=== PATIENT | male | born 1975 | race Caucasian/White ===

== ENCOUNTER 2024-02-14 10:09 | Inpatient (IN) | payer OTHER ==
[2024-02-14 11:57] LABS: BASOPHILS ABSOLUTE AUTO 0.07 K/uL (0.00-0.10); BASOPHILS PERCENT AUTO 0.6 % (0.1-1.3); EOSINOPHILS ABSOLUTE AUTO 0.08 K/uL (0.00-0.40); EOSINOPHILS PERCENT AUTO 0.7 % (0.0-5.4); IMMATURE GRAN ABSOLUTE AUTO 0.06 K/uL (0.00-0.23); IMMATURE GRAN PERCENT AUTO 0.5 % (0.0-0.7); LYMPHOCYTES ABSOLUTE AUTO 1.98 K/uL (0.8-3.3); LYMPHOCYTES PERCENT AUTO 16.7 % (11.4-47.7); MEAN CORPUSCULAR HEMOGLOBIN 29.5 pg (31.6-35.5); MEAN CORPUSCULAR HGB CONC 34.2 g/dL (31.6-35.5); MEAN CORPUSCULAR VOLUME 86.2 fL (81.4-99.0); MONOCYTES ABSOLUTE AUTO 1.22 K/uL (0.20-0.90); MONOCYTES PERCENT AUTO 10.3 % (3.3-12.6); NEUTROPHILS ABSOLUTE AUTO 8.48 K/uL (1.0-7.6); NEUTROPHILS PERCENT AUTO 71.2 % (40.0-78.1); PLATELET COUNT,PLT 284 K/uL (130-375); RED BLOOD CELL COUNT 6.38 M/uL (4.14-5.76); WHITE BLOOD CELL COUNT,WBC 11.9 K/uL (3.2-11.0)
[2024-02-14 12:00] LABS: HEMOGLOBIN 18.8 g/dL (12.9-16.9)
[2024-02-14] MEDS: Lactated Ringers 1,000 ML IV SCH ×2 (12:02→20:43)
[2024-02-14] MEDS: Ondansetron 4 MG/2 ML SDV IVPUSH ONE (12:03)
[2024-02-14] MEDS: fentaNYL 100 MCG/2 ML SDV IVPUSH ONE ×2 (12:05→16:51)
[2024-02-14 12:18] LABS: ALANINE AMINOTRANSFERASE,ALT 36 U/L (12-78); ALKALINE PHOSPHATASE 111 U/L (46-116); ASPARTATE AMNIOTRANSFERASE,AST 22 U/L (15-37); BILIRUBIN TOTAL 0.5 mg/dL (0.2-1.0); CARBON DIOXIDE,CO2 26 mmol/L (21-32); CHLORIDE,CL 95 mmol/L (100-108); CREATININE 2.2 mg/dL (0.8-1.3); EST CRCL DRUG DOSING (CG) 42.86 mL/min; ESTIMATED GFR 36 mL/min (>60); GLUCOSE RANDOM 130 mg/dL (74-106); POTASSIUM,K 3.4 mmol/L (3.6-5.2); PROTEIN TOTAL,TP 9.9 g/dL (6.4-8.2); SODIUM,NA 137 mmol/L (140-148)
[2024-02-14 12:21] LABS: ANION GAP 19.4 mmol/L (5.0-14.0)
[2024-02-14 12:28] LABS: A/G RATIO 0.7 (1.2-2.2); ALBUMIN 4.2 g/dL (3.4-5.0); BLOOD UREA NITROGEN,BUN 29 mg/dL (7-18)
[2024-02-14] MEDS: Sodium Chloride 0.9% 80 ML IV SCH (12:33)
[2024-02-14] MEDS: Iopamidol 612 MG/ML 100 ML Bottle IV PRN (12:33)
[2024-02-14] MEDS: Sodium Chloride 0.9% 10 ML Syringe FLUSH ONE (12:33)
[2024-02-14] MEDS: Sodium Chloride 0.9% 10 ML Syringe FLUSH PRN (13:16)
[2024-02-14] MEDS: Lactated Ringers 1,000 ML IV ONE (13:28)
[2024-02-14 14:43] LABS: APPEARANCE,URINE CLEAR (CLEAR); BILIRUBIN,URINE NEGATIVE (NEGATIVE); COLOR,URINE YELLOW (YELLOW); GLUCOSE,URINE NEGATIVE (NEGATIVE); KETONES,URINE NEGATIVE (NEGATIVE); LEUKOCYTE ESTERASE,URINE NEGATIVE (NEGATIVE); NITRITE,URINE NEGATIVE (NEGATIVE); OCCULT BLOOD,URINE TRACE-INTACT (NEGATIVE); PH,URINE 5.5 (5.0-8.0); PROTEIN,URINE 100 mg/dL (NEGATIVE); UROBILINOGEN,URINE 0.2 EU/dL (0.2-1.0)
[2024-02-14 14:48] LABS: BACTERIA,URINE MANY; EPITHELIAL CELLS,URINE MODERATE; WBC,URINE 0-5 (0-5)
[2024-02-14 14:49] LABS: AMORPHOUS SEDIMENT,URINE NOT SEEN; MUCUS,URINE FEW
[2024-02-14] MEDS: HYDROmorphone 1 MG/ML Syringe IVPUSH ONE (15:12)
[2024-02-14] MEDS: Levofloxacin/Dextrose 5%-Water 750 MG in Premix Bag 1 BAG IV ONE (15:13)
[2024-02-14] MEDS: metroNIDAZOLE/Normal Saline 500 MG in Premix Bag 1 BAG IV SCH (16:50)
[2024-02-14] MEDS: Potassium Chloride 20 MEQ Tab.ER PO ONE (16:52)
[2024-02-14] MEDS ORDERED: HYDROmorphone 0.5 MG/0.5 ML Syringe IVPUSH PRN (17:41)
[2024-02-14] MEDS ORDERED: Ondansetron 4 MG/2 ML SDV IV PRN (17:41)
[2024-02-14] MEDS ORDERED: oxyCODONE 5 MG Tab PO PRN (17:41)
[2024-02-14] MEDS ORDERED: Naloxone 0.4 MG/ML SDV IVPUSH PRN (17:41)
[2024-02-14] MEDS ORDERED: Sodium Chloride 0.9% 10 ML Syringe FLUSH PRN (17:41)
[2024-02-14 18:07] LABS: CORONAVIRUS COVID-19 NAA NEGATIVE (NEGATIVE); INFLUENZA A NAA NEGATIVE (NEGATIVE); INFLUENZA B NAA NEGATIVE (NEGATIVE); RESPIRATORY SYNCYTIAL VIR NAA NEGATIVE (NEGATIVE)
[2024-02-14] MEDS: Enoxaparin 40 MG/0.4 ML Syringe SUBCUT SCH (18:46)
[2024-02-14] MEDS: Pantoprazole 40 MG Vial IV SCH (20:46)
[2024-02-15 05:23] LABS: HEMATOCRIT 45.8 % (38.4-49.7); HEMOGLOBIN 15.5 g/dL (12.9-16.9); MEAN CORPUSCULAR HEMOGLOBIN 29.2 pg (31.6-35.5); MEAN CORPUSCULAR HGB CONC 33.8 g/dL (31.6-35.5); MEAN CORPUSCULAR VOLUME 86.3 fL (81.4-99.0); RED BLOOD CELL COUNT 5.31 M/uL (4.14-5.76); WHITE BLOOD CELL COUNT,WBC 7.2 K/uL (3.2-11.0)
[2024-02-15 05:44] LABS: ANION GAP 14.7 mmol/L (5.0-14.0); CALCIUM 8.5 mg/dL (8.5-10.1); CREATININE 1.5 mg/dL (0.8-1.3); EST CRCL DRUG DOSING (CG) 62.86 mL/min; MAGNESIUM 1.9 mg/dL (1.8-2.4); POTASSIUM,K 3.7 mmol/L (3.6-5.2)
[2024-02-15] MEDS: Acetaminophen 325 MG Tab PO PRN (05:47)
[2024-02-15] MEDS: metroNIDAZOLE/Normal Saline 500 MG in Premix Bag 1 BAG IV SCH (08:39)
[2024-02-15] MEDS: Lisinopril 10 MG Tab PO SCH (08:43)
[2024-02-15] MEDS: Pravastatin 20 MG Tab PO SCH (08:43)
[2024-02-15] MEDS ORDERED: Non-Formulary Medication 1 Each (Simvastatin [Simvastatin] 10 MG Tablet) PO SCH (09:00)
[2024-02-15] MEDS: Levofloxacin/Dextrose 5%-Water 750 MG in Premix Bag 1 BAG IV SCH (13:50)
[2024-02-15] MEDS: Enoxaparin 40 MG/0.4 ML Syringe SUBCUT SCH (17:11)
[2024-02-16] MEDS: Lactated Ringers 1,000 ML IV SCH (04:33)
[2024-02-16 05:49] LABS: HEMATOCRIT 41.3 % (38.4-49.7); HEMOGLOBIN 14.1 g/dL (12.9-16.9); MEAN CORPUSCULAR HEMOGLOBIN 29.4 pg (31.6-35.5); MEAN CORPUSCULAR HGB CONC 34.1 g/dL (31.6-35.5); MEAN CORPUSCULAR VOLUME 86.2 fL (81.4-99.0); RED BLOOD CELL COUNT 4.79 M/uL (4.14-5.76); WHITE BLOOD CELL COUNT,WBC 6.5 K/uL (3.2-11.0)
[2024-02-16 06:08] LABS: ANION GAP 12.4 mmol/L (5.0-14.0); CREATININE 1.2 mg/dL (0.8-1.3); EST CRCL DRUG DOSING (CG) 78.58 mL/min; POTASSIUM,K 3.4 mmol/L (3.6-5.2)
[2024-02-16] MEDS: Potassium Chloride 20 MEQ Tab.ER PO ONE (08:46)
[2024-02-16] MEDS ORDERED: Levofloxacin/Dextrose 5%-Water 750 MG in Premix Bag 1 BAG IV SCH (16:00)
[2024-02-19 14:02] LABS: OVA AND PARASITE,FECAL INTERP Negative (Negative)
== END 2024-02-16 13:40 | disposition home or self-care (01) | DRG 392 ==
LOC: JP.ED 10:09 → JP.MS 17:14
PROVIDERS: ADMIT Hospitalist; ATTEND Hospitalist
DX: A09 Infectious gastroenteritis and colitis, unspecified (principal); I10 Essential (primary) hypertension; M19.90 Unspecified osteoarthritis, unspecified site; F32.A Depression, unspecified; K62.89 Other specified diseases of anus and rectum; E86.0 Dehydration; Z88.6 Allergy status to analgesic agent; Z88.0 Allergy status to penicillin; Z88.8 Allergy status to other drugs, medicaments and biological substances; Z79.899 Other long term (current) drug therapy; Z98.890 Other specified postprocedural states; Z90.49 Acquired absence of other specified parts of digestive tract; Z96.659 Presence of unspecified artificial knee joint; Z87.891 Personal history of nicotine dependence; Z86.010 Personal history of colon polyps
CPT/HCPCS: 0241U; 36415; 74177; 74177-26; 80048; 80053; 81001; 83605; 83690; 83735; 84145; 85025; 85027; 87040; 87046; 87086; 87177; 87209; 87493; 87899; 89055; 96361; 96365; 96375; 96376; 99222; 99232; 99238; 99284; 99285-25; A9270-GY; C9113; J1170; J1650; J1836; J1956; J2405; J3010; J3490; J7120; Q9967